=== PATIENT | male | born 1965 | race Caucasian/White ===

== ENCOUNTER 2024-04-15 13:41 | Emergency (ER) | payer OTHER ==
[~2024-04-15] VITALS: Ht 177.8 cm; Wt 99.8 kg
[2024-04-15] MEDS ORDERED: HYDROcodone/Acetaminophen 1 COMBO TAB PO ONE (13:55)
[2024-04-15 14:00] VITALS: BP 127/73
[2024-04-15 14:30] VITALS: BP 118/81
[2024-04-15 15:00] VITALS: BP 123/75
[2024-04-15] MEDS ORDERED: TYLENOL # 31 TA1 PO (15:01)
[2024-04-15 15:36] VITALS: BP 123/75
== END 2024-04-15 15:38 | disposition home or self-care (01) | DRG 605 ==
LOC: ED 13:41
DX: S20.211A Contusion of right front wall of thorax, initial encounter (principal); E11.9 Type 2 diabetes mellitus without complications; I25.10 Atherosclerotic heart disease of native coronary artery without angina pectoris; I25.2 Old myocardial infarction; W11.XXXA Fall on and from ladder, initial encounter